=== PATIENT | male | born 1980 | race Hispanic/Latino ===

== ENCOUNTER 2016-11-22 19:34 | Emergency (ER) | payer BC ==
[2016-11-22 20:08] VITALS: BP 110/76; PULSE 67; RESP 16; TEMP 98.3; O2SAT 99
[2016-11-22] MEDS ORDERED: Lidocaine 2% Inj (20ml) INFIL ONE (20:42)
[2016-11-22] MEDS ORDERED: Lidocaine 2% Inj (20ml) ONE (20:51)
[2016-11-22] MEDS ORDERED: Amoxicillin-Clav 875-125 mg Tab PO STA (21:35)
[2016-11-22] MEDS ORDERED: Amoxicillin-Clav 875-125 mg Tab PO ONE (21:39)
--- NOTE | 2016-11-22 21:42 | C.PDOC ---
History Of Present Illness 35 year old male who presents to the ER with a laceration to the mouth after he was elbowed while playing basketball 1 hour [employer]. Denies dental injury, weakness , numbness, or LOC. Time Seen by Provider: 11/22/16 20:15 Chief Complaint (Nursing): Abnormal Skin Integrity History Per: Patient History/Exam Limitations: no limitations Onset/Duration Of Symptoms: Hrs Current Symptoms Are (Timing): Still Present Location Of Injury: Right: Mouth, Anterior: Mouth Quality Of Symptoms: Other (Laceration) Recent travel outside of the [place]: No Past Medical History Reviewed: Historical Data, Nursing Documentation, Vital Signs Vital Signs: Last Vital Signs Temp 98.3 F 11/22/16 20:03 Pulse 67 11/22/16 20:03 Resp 16 11/22/16 20:03 BP 110/76 11/22/16 20:03 Pulse Ox 99 11/22/16 23:13 - Medical History PMH: Mitral Valve Prolapse Surgical History: Tonsillectomy Family History: States: Unknown Family Hx - Social History Hx Alcohol Use: Yes Hx Substance Use: No Review Of Systems ENT: Negative for: Mouth Swelling Skin: Positive for: Other (Laceration) Neurological: Negative for: Weakness, Numbness, Other (LOC) Physical Exam - Physical Exam Appears: Non-toxic Skin: Warm, Dry Head: Atraumatic, Normacephalic Eye(s): bilateral: Normal Inspection, PERRL, EOMI Nose: Normal, No Deformity, No Tenderness Oral Mucosa: Moist, No Trismus Tongue: Normal Appearing, No Swelling, No Bite, No Laceration Lips: Laceration (1cm to inner right upper lip that is through and through with a 0.5cm laceration to the outer right upper lip) Teeth: Normal Dentition, No Tender To Palpation, No Loose Gingiva: Normal Appearing, No Tender, No Bleeding Throat: Normal Neck: Normal, No Midline Cervical Tenderness, No Paracervical Tenderness, Supple Neurological/Psych: Oriented x3, Normal Speech, Normal Cognition, Normal Motor, Normal Sensation Gait: Steady ED Course And Treatment O2 Sat by Pulse Oximetry: 99 (Room air) Pulse Ox Interpretation: Normal Laceration - Laceration Repair Inner Lip Wound Length (In cm): 1 Description Of Wound: Linear Wound Cleansed With: Betadine, Sterile Saline Anesthesia: Lidocaine 2% Wound Examination: Irrigated With Saline, No FB With Wound Exploration Wound Closure: Suture (Three) Suture Technique And Material Used: Interrupted, Vicryl (5-0) Wound Complexity: Simple Outer Lip Wound Length (In cm): 0.5 Description Of Wound: Linear Wound Cleansed With: Betadine, Sterile Saline Anesthesia: Lidocaine 2% Wound Examination: Irrigated With Saline, No FB With Wound Exploration Wound Closure: Steri Strips (Two), Skin Glue (Dermabond) Wound Complexity: Simple Medical Decision Making Medical Decision Making: Plan: * Laceration Repair * Augmentin Patient given instructions on proper wound care and instructed to return to ED if he notices any possible signs of infection. Disposition - Disposition Referrals: [facility] [Outside] [facility] [Outside] Disposition: HOME/ ROUTINE Disposition Time: 21:42 Condition: GOOD Additional Instructions: Keep the wound on the outside clean and dry. Do not wet. Rinse out the mouth with water after eating. Do not use listerine or eat spicy foods. Sutures will dissolve on their own. Return if worsened. Prescriptions: Amoxicillin/Clavulanate [Augmentin 875 MG-125 MG] 1 tab PO BID #14 tab Instructions: Laceration (ED), Skin Adhesive Care (ED) Forms: [employer] (Danish) - Clinical Impression Clinical Impression: Lip laceration - Scribe Statement The provider has reviewed the documentation as recorded by the Scribkelly Olivera All medical record entries made by the Scribe were at my direction and personally dictated by me. I have reviewed the chart and agree that the record accurately reflects my personal performance of the history, physical exam, medical decision making, and the department course for this patient. I have also personally directed, reviewed, and agree with the discharge instructions and disposition.
== END 2016-11-22 21:52 | disposition home or self-care (01) ==
LOC: C.ER 19:34
DX: S01.511A Laceration without foreign body of lip, initial encounter (principal); W50.0XXA Accidental hit or strike by another person, initial encounter; Y93.67 Activity, basketball; Z23 Encounter for immunization